=== PATIENT | male | born 1965 | race Asian ===

== ENCOUNTER 2024-02-18 14:05 | Emergency (ER) | payer SELFPAY ==
[2024-02-18 14:09] VITALS: BP 106/91
[2024-02-18 14:25] LABS: % Basophils 0.6 % (0-2); % Eosinophils 2.5 % (0-6); % Immature Granulocytes 0.2 % (0-0.5); % Lymphocytes 26.5 % (20.5-51.1); % Monocytes 6.9 % (1.7-9.3); % Neutrophils 63.3 % (42.2-75.2); Absolute Basophils 0.1 10^3/uL (0-0.2); Absolute Eosinophils 0.2 10^3/uL (0-0.7); Absolute Lymphocytes 2.4 10^3/uL (1.2-3.4); Absolute Monocytes 0.6 10^3/uL (0.1-0.6); Absolute Neutrophils 5.6 10^3/uL (1.4-6.5); Hematocrit 45.1 % (39.0-52.0); Hemoglobin 15.6 g/dL (13.0-18.0); Mean Corp Hgb Conc. 34.6 g/dL (33.0-37.0); Mean Corpuscular Hgb 30.8 pg (27.0-31.0); Nucleated Red Blood Cells % 0 % (-); Platelet Count 375 10^3/uL (130-400); Red Blood Cell Count 5.07 10^6/uL (4.70-6.10); Red Cell Dist. Width 12.5 % (11.5-14.5); White Blood Cell Count 8.9 10^3/uL (4.8-10.8)
[2024-02-18 14:34] LABS: ALT (SGPT) 82 U/L (0-50); AST (SGOT) 36 U/L (17-59); Albumin 4.3 g/dl (3.5-5.0); Alkaline Phosphatase 78 U/L (38-126); Blood Urea Nitrogen 16 mg/dl (9-20); Calcium 9.8 mg/dl (8.4-10.2); Carbon Dioxide 31 mmol/L (22-30); Chloride 102 mmol/L (98-107); Glucose 120 mg/dl (70-99); Potassium 4.5 mmol/L (3.5-5.1); Sodium 142 mmol/L (135-145); Total Bilirubin 0.3 mg/dl (0.2-1.3); Total Protein 7.3 g/dl (6.3-8.2); eGFR > 60.00
[2024-02-18 14:46] LABS: Troponin I < 0.012 ng/ml
--- NOTE | 2024-02-18 14:50 | ED.GENMED ---
History of Present Illness
General
Chief Complaint: Chest Pain
Source: patient
Time Seen by Provider: 02/18/24 14:25
History of Present Illness
History of Present Illness:
58-year-old male with past medical history of hypertension, mitral valve prolapse and anxiety presenting to the ER via EMS with corrections officers after patient started experiencing palpitations while in his holding cell approximately 2 hours
prior to arrival to the ER. Patient reports he is asymptomatic at present. Notes that he will often experience palpitations. He admits to some left shoulder discomfort and chest discomfort. Unable to quantify the pain. Denies any fevers, chills
or infectious symptoms. No coughing. Social history was noted for half pack cigarettes daily. Family history otherwise noncontributory
Past History
Past History
ED Past Medical History: HTN, Valvular disease and Psychiatric
ED Past Surgical History: None
Social History
Tobacco: Smoker
Alcohol: Former (Quit 7 years ago)
Drug: None
Personal:
Living: with family
Review of Systems
Review of Systems
All Other Systems: ROS reviewed and negative except as documented in HPI and ROS
Phy Exam
Physical Exam
Physical Exam:
GENERAL: Alert , in no apparent distress
EYE: clear conjunctiva b/l
HEAD: NCAT
ENT: mmm.
CARDIAC: Regular rate and rhythm .
LUNGS: Clear breath sounds bilaterally, no acute respiratory distress, no wheezes/rales/rhonchi
ABDOMEN: Soft, without focal tenderness, no r/g, no cvat
NEUROLOGICAL: Alert and oriented
SKIN: Warm and dry, skin intact.
MUSCULOSKELETAL: No edema, well perfused.
PSYCH: Normal and appropriate interaction.
Scores
Heart Failure Risk
Heart Failure Risk Score: Not Applicable
Heart Score for Chest Pain Patients
STEMI patient?: No
History: Slightly or Non-Suspicious
ECG: Normal
Age: >45 - <65 years
Risk Factors: 1 or 2 Risk Factors
Troponin: </= Normal Limit
Heart Score for Chest Pain Patients: 2
Heart Score Risk: 2.5% MACE over next 6 weeks
Withdrawal Assessment of Alcohol
Withdrawal Assessment Completed?: Not applicable
Course
Orders/Labs/Results
Orders:
Orders
02/18/24 14:07
ECG [Electrocardiogram (*1)] Urgent
Reason for Study: Chest Pain
EKG- Treatment ONCE
02/18/24 14:12
CR Chest - 2 Views Urgent
Comment:
Reason For Exam: chest pain
02/18/24 14:13
Complete Blood Count/With Diff Urgent
Comprehensive Metabolic Panel Urgent
Troponin I Urgent
02/18/24 17:06
Troponin I Urgent
Abnormal Lab Results
02/18/24
14:13
Carbon Dioxide 31 H mmol/L
(22-30)
Glucose 120 H mg/dl
(70-99)
ALT 82 H U/L
(0-50)
02/18/24 14:13
02/18/24 14:13
Vital Signs
Initial and Last Documented VS:
Initial Vital Signs
Temp Pulse Resp BP Pulse Ox
98.2 F 81 20 106/91 99
02/18/24 14:09 02/18/24 14:09 02/18/24 14:09 02/18/24 14:09 02/18/24 14:09
Last Documented Vital Signs
Temp Pulse Resp BP Pulse Ox
98.2 F 70 14 141/86 99
02/18/24 14:09 02/18/24 16:15 02/18/24 16:15 02/18/24 16:00 02/18/24 14:09
MDM/Problems Addressed
Differential Diagnosis Includes:
cardiac arrhythmia, valvular dysfunction, ACS, anxiety
MDM/Problems Addressed:
58-year-old male presenting to the emergency department for evaluation after starting to experience palpitations while in his holding cell at the local skilled nursing. Asymptomatic presently. EKG and telemetry show patient's in a normal sinus rhythm.
Patient does have risk factor for CAD with his smoking history and hypertension. Will perform 2 troponins. Anticipate discharge back into correctional casework specialist custody.
Chronic conditions affecting care: HTN
*Pulse Oximetry
Patient hypoxic: no
*EKG
Heart Rate: 76
Rate: normal
Rhythm: sinus
[place]: normal axis
Ischemia: no ischemia
*[employer] Att[employer] Interpretation
Rate: normal
Rhythm: sinus
*Critical Care Note
Total Time (30-74mins, 75-104mins- exclusive of procedures): Not Applicable
Patient Management
Escalation/DeEscalation of care consider admission/obs:
Patient's repeat troponin is negative. He remains asymptomatic. patient is medically cleared for incarceration. Aware of return precautions.
ED Attending Note
-
Portions of this chart may have been created with voice recognition software.� Occasional wrong word or��sound alike� substitutions may have occurred due to the inherent limitations of voice recognition software.
Discharge Plan
Departure
Patient Disposition: Half-Way
Date of Disposition: 02/18/24
Time of Disposition: 17:39
Patient with high blood pressure during this ER visit?: Yes
Discharge Problem:
Palpitations
Instructions: Palpitations
Referrals:
NONE,* [Family Provider] -
Activity Restrictions/Additional Instructions:
Patient is medically cleared for incarceration
Interventions
Interventions:
*General Assessment Last Done: 02/18/24 14:09
ED- Fall Risk Assessment Last Done: 02/18/24 14:24
*Nursing Disposition Last Done: 02/18/24 17:54
ED- Cardiac Assessment Last Done: 02/18/24 14:24
Discharge Date and Time
Discharge Date/Time: 02/18/24 18:09
Print Language: EMIRATI
[2024-02-18 15:00] VITALS: BP 135/98
[2024-02-18 16:00] VITALS: BP 141/86
[2024-02-18 17:47] LABS: Troponin I < 0.012 ng/ml
== END 2024-02-18 18:09 ==
LOC: EMR 14:05
PROVIDERS: Physician Assistant Medical; EMERGENCY PHYSICIAN Emergency Medicine
DX: R00.2 Palpitations (principal); I10 Essential (primary) hypertension; I34.1 Nonrheumatic mitral (valve) prolapse; F41.9 Anxiety disorder, unspecified; F17.210 Nicotine dependence, cigarettes, uncomplicated
CPT/HCPCS: 99285; 71046; 80053; 84484; 85025; 93005